=== PATIENT | female | born 2000 | race Caucasian/White ===

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

== ENCOUNTER 2020-02-04 22:10 | Emergency (ER) | payer OTHER ==
[~2020-02-04] VITALS: Ht 162.6 cm; Wt 57.1 kg
[~2020-02-04 22:10] MED LIST changes: +KEFLEX500 M1 PO; +ZOFRAN ODT4 MG PO
[2020-02-04 23:33] VITALS: BP 127/67
== END 2020-02-04 23:40 | disposition home or self-care (01) ==
LOC: ER 22:10
DX: U07.1 COVID-19 (principal); O26.892 Other specified pregnancy related conditions, second trimester; Z79.899 Other long term (current) drug therapy; Z3A.26 26 weeks gestation of pregnancy